=== PATIENT | female | born 1995 | race Caucasian/White ===

== ENCOUNTER 2016-03-16 20:40 | Emergency (ER) | payer OTHER ==
[2016-03-16] MEDS ORDERED: IBUPROFEN 600 MG TABLET ONE (21:21)
[2016-03-16] MEDS ORDERED: ACETAMINOPHEN 500 MG TABLET ONE (22:43)
== END 2016-03-16 22:53 | disposition home or self-care (01) ==
LOC: ED 20:40
DX: R05 Cough (principal); B34.9 Viral infection, unspecified
CPT/HCPCS: 99283; 99282; A9270 ×2

== ENCOUNTER 2016-03-17 16:28 | Emergency (ER) | payer OTHER ==
[2016-03-17] MEDS ORDERED: SODIUM CHLORIDE 0.9% 1,000 ML ONE ×2 (19:50)
--- NOTE | 2016-03-17 20:53 | RAD ---
EXAMINATION:CHEST - 2 VIEWS CLINICAL INDICATION: Cough and shortness of breath. COMPARISON:none FINDINGS: The cardiomediastinal silhouette is within normal limits. There is no adenopathy identified. There is no pleural effusion. The lungs are clear. The osseous structures are unremarkable for age. IMPRESSION: Negative PA and lateral views of the chest. No acute cardiopulmonary process is identified.
[2016-03-17] MEDS ORDERED: ACETAMINOPHEN 500 MG TABLET ONE (21:15)
== END 2016-03-17 22:52 | disposition home or self-care (01) ==
LOC: ED 16:28
DX: J11.1 Influenza due to unidentified influenza virus with other respiratory manifestations (principal); E86.0 Dehydration; R50.9 Fever, unspecified
CPT/HCPCS: 71020; 99283 ×2; 96360; 96361; A9270; J7030 ×2